=== PATIENT | female | born 1950 | race Caucasian/White ===

== ENCOUNTER 2021-09-21 13:30 | Outpatient (CLI) | payer BC, MEDICARE | END 2021-09-21 13:31 | disposition home or self-care (01) | LOC: BICMAMMO 13:30 | PROVIDERS: ATTEND Internal Medicine | DX: Z12.31 Encounter for screening mammogram for malignant neoplasm of breast (principal) | CPT/HCPCS: 77063; 77067 ==

== ENCOUNTER 2022-06-26 09:58 | Outpatient (CLI) | payer BC, MEDICARE | END 2022-06-26 09:59 | disposition home or self-care (01) | LOC: BICMAMMO 09:58 | PROVIDERS: ATTEND Nurse Practitioner Family | DX: M85.851 Other specified disorders of bone density and structure, right thigh (principal); M85.852 Other specified disorders of bone density and structure, left thigh; Z78.0 Asymptomatic menopausal state | CPT/HCPCS: 77080 ==

== ENCOUNTER 2023-07-16 | Observation (INO) | payer BC, MEDICARE ==
[2023-07-17 02:00] VITALS: BMI 38.4
[2023-07-17] MEDS: Lactated Ringer's 1,000 ML IV SCH (02:33)
[2023-07-17] MEDS: Piperacillin/Tazobactam 3.375 GM in Sodium Chloride 0.9% 100 ML IVPB SCH (04:46)
[2023-07-17] MEDS ORDERED: hydrALAZINE 20 MG/ML VIAL SLOW IVP PRN (05:04)
[2023-07-17] MEDS ORDERED: Ondansetron PF 4 MG/2 ML Vial IVP PRN (05:04)
[2023-07-17] MEDS: Levothyroxine Sodium 100 MCG TAB PO SCH (06:47)
[2023-07-17] MEDS ORDERED: EPINEPHrine 1 MG/ML VIAL ONE (07:25)
[2023-07-17] MEDS ORDERED: Bupivacaine 0.25% HCL 30 ML VIAL ONE (07:25)
[2023-07-17] MEDS ORDERED: SUCCINYLCHOLINE/SOD CL,ISO/PF 200 MG/10 ML SYRINGE FS ONE (07:57)
[2023-07-17] MEDS ORDERED: Dexamethasone 4 mg/ml Vial ONE (07:57)
[2023-07-17] MEDS ORDERED: Rocuronium Bromide 10 MG/ML (10ML VIAL) ONE (07:57)
[2023-07-17] MEDS ORDERED: Ondansetron PF 4 MG/2 ML Vial ONE (07:57)
[2023-07-17] MEDS ORDERED: fentaNYL PF 100 MCG/2 ML SYRINGE ONE ×2 (07:58→09:21)
[2023-07-17] MEDS ORDERED: Midazolam HCl 2 mg/2 ml Vial ONE (07:58)
[2023-07-17] MEDS ORDERED: PROPOFOL 20 ML ONE (07:58)
[2023-07-17] MEDS: Losartan 25 MG TAB PO SCH (09:37)
[2023-07-17] MEDS: Famotidine/PF 20 mg/2ml Vial SLOW IVP SCH (09:37)
[2023-07-17] MEDS ORDERED: HYDROmorphone 2 MG/ML VIAL SLOW IVP PRN (09:42)
[2023-07-17] MEDS ORDERED: Promethazine HCl 25 MG/ML VIAL IM PRN (09:42)
[2023-07-17] MEDS ORDERED: Ondansetron HCl/PF 4 MG/2 ML Vial IVP PRN (09:42)
[2023-07-17] MEDS ORDERED: SUGAMMADEX SODIUM 200 MG/2 ML VIAL ONE (09:48)
[2023-07-17] MEDS ORDERED: Albuterol HFA (OR) 200 PUFF INH ONE ×2 (09:52→09:54)
[2023-07-17] MEDS ORDERED: HYDROcodone/Acetaminophen 7.5/325 mg Tablet PO PRN (10:19)
[2023-07-17] MEDS ORDERED: fentaNYL 50 mcg/mL 1 mL Vial ONE ×3 (10:47→11:46)
[2023-07-17] MEDS: Ondansetron PF 4 MG/2 ML Vial IVP PRN (14:29)
[2023-07-17] MEDS: Morphine 4 MG/ML VIAL SLOW IVP PRN (14:29)
[2023-07-17 17:03] VITALS: BP 165/85; TEMP 97.7
== END 2023-07-17 18:20 | disposition home or self-care (01) ==
LOC: SURG A 07-17 00:50 → OBSVTOIN 07-17 05:04 → INTOOBSV 07-17 05:04
PROVIDERS: ADMIT Surgery; ATTEND Surgery
PROC: 0FT44ZZ Resection of Gallbladder, Percutaneous Endoscopic Approach (ICD-10-PCS; principal; 2023-07-17)
DX: K80.12 Calculus of gallbladder with acute and chronic cholecystitis without obstruction (principal); E03.9 Hypothyroidism, unspecified; I10 Essential (primary) hypertension; Z79.890 Hormone replacement therapy; Z79.899 Other long term (current) drug therapy; Z90.710 Acquired absence of both cervix and uterus
CPT/HCPCS: 88304; C1713; J0171; J0665; J1100; J2250; J2270; J2405; J2543; J2704; J3010; J3490; J7120